=== PATIENT | female | born 1955 | race Caucasian/White ===

== ENCOUNTER 2017-03-30 07:32 | Emergency (ER) | payer SELFPAY ==
--- NOTE | 2017-03-30 07:41 | EDPHY ---
H & P Time Seen by Provider: 03/30/17 07:35 HPI/ROS: CHIEF COMPLAINT: Right leg injury HISTORY OF PRESENT ILLNESS: Patient is visiting from [place] and tripped going down the stairs at her family's house this morning. She injured her right lower leg. Pain is mild now, severe with movement or palpation. Unable to walk. Not associated with other injuries. No neck or back pain and no loss of consciousness. Pain started just after the fall. Ate dinner at 6:00 p.m., no oral intake after 7:00 p.m.. REVIEW OF SYSTEMS: Eye: No visual symptoms ENT: No ENT symptoms Cardiac: No chest pain, did not have syncope Pulmonary: Not short of breath Abdomen: No abdominal pain Musculoskeletal: no back pain or neck pain Skin: no rash Neuro: No weakness or numbness over the right foot area Constitutional: no fever : no urinary symptoms A comprehensive 10 point review of systems is otherwise negative aside from elements mentioned in the history of present illness. PAST MEDICAL HISTORY: Hypertension and thyroid Social history: Visiting from [facility]. General Appearance: Alert and conversant, cooperative. Eyes: No scleral icterus. ENT, Mouth: Normal mucous membranes. Respiratory: Normal respiratory effort, breath sounds equal, lungs are clear to auscultation. Cardiovascular: Regular rate and rhythm. Gastrointestinal: Abdomen is soft and non tender. Neurological: Alert and oriented x3. Normally conversant. Has normal dorsalis pedis pulse, motor and sensory in the right foot. Skin: Warm and dry, no rashes. No laceration over the right leg. Musculoskeletal: No spinal tenderness. Deformity and swelling in the distal right tib-fib region. Foot is nontender. Knee is nontender. Compartments soft in the right lower leg. No foot tenderness. No knee tenderness. No other extremity tenderness or deformity. Psychiatric: Not agitated. Emergency Department course/MDM: Receive fentanyl prior to arrival. NPO since last night. Plan for right tib- fib x-ray, orthopedic consultation. 800: Distal 3rd tib-fib fracture closed, x-ray personally interpreted by myself and reviewed with the patient on the computer system. Procedure: Splint placement. A right posterior Ortho Glass long leg splint was applied. After application of the splint I returned and re-examined the patient. The splint was adequately immobilizing the joint and distal to the splint the patient's circulation and sensation was intact. 835: Patient would prefer to be splinted and have crutches and follow-up in [place], she is returning this Tuesday. I warned her that open reduction internal fixation is often a standard treatment for this, however she would prefer to avoid surgery today. We discussed compartment syndrome precautions and DVT precautions in detail. She will take 1 oral aspirin each day as recommended by orthopedic consult Dr. Saucedo, with whom the case was discussed. Constitutional: Initial Vital Signs Temperature (C) 36.7 C 03/30/17 07:42 Heart Rate 70 03/30/17 07:42 Respiratory Rate 18 03/30/17 07:42 Blood Pressure 114/79 03/30/17 07:42 O2 Sat (%) 99 03/30/17 07:42 O2 Delivery Mode Room Air Allergies/Adverse Reactions: No Known Allergies Allergy (Unverified 03/30/17 07:41) Home Medications: Medication Instructions Recorded Levothyroxine 03/30/17 Metoprolol Tartrate 03/30/17 oxyCODONE/APAP 5/325 [Percocet] 1 tab PO Q4-6PRN PRN #11 tab 03/30/17 oxyCODONE/APAP 5/325 [Percocet] 1 tab PO Q4-6PRN PRN #11 tab 03/30/17 Medical Decision Making - Diagnostics Imaging Results: Imaging Impressions Tibia/Fibula X-Ray 03/30/17 07:39 Impression: Acute displaced and angulated distal tibia and fibular diaphyseal fractures. Differential Diagnosis: Differential considered including but not limited to tibia fracture, ankle dislocation, contusion, hematoma, compartment syndrome - Data Points Medications Given: Discontinued Medications Hydromorphone HCl (Dilaudid) 0.5 mg IVP EDNOW ONE Stop: 03/30/17 08:06 Last Admin: 03/30/17 08:09 Dose: 0.5 mg Departure - Departure Disposition: Home, Routine, Self-Care Clinical Impression: Tibia/fibula fracture Qualifiers: Encounter type: initial encounter Fracture type: closed Laterality: right Qualified Code(s): S82.201A - Unspecified fracture of shaft of right tibia, initial encounter for closed fracture Condition: Good Instructions: Oxycodone/Acetaminophen (By mouth), Crutch Instructions (ED) Additional Instructions: Please call back home today to arrange orthopedic follow-up on Tuesday back in [place]. Nonweightbearing on the right leg. Return immediately for weakness or numbness in the right foot, or severe right foot pain, or if the right foot becomes cold in temperature. Take one oral aspirin per day until seen by orthopedics next week and advised further. Seek immediate medical care for any chest pain or shortness of breath. Referrals: Jose Eduardo Saucedo MD [Medical Doctor] - As per Instructions Prescriptions: oxyCODONE/APAP 5/325 [Percocet] 1 tab PO Q4-6PRN PRN #11 tab PRN Reason: Pain oxyCODONE/APAP 5/325 [Percocet] 1 tab PO Q4-6PRN PRN #11 tab PRN Reason: Pain
[2017-03-30 07:44] VITALS: RESP 18; TEMP 98.1
[2017-03-30] MEDS ORDERED: HYDROmorphONE/DILAUDID 1 MG/ML INJ IVP ONE (08:05)
[2017-03-30 08:59] VITALS: BP 119/64; PULSE 72; O2SAT 95
== END 2017-03-30 08:58 | disposition home or self-care (01) ==
DX: S82.831A Other fracture of upper and lower end of right fibula, initial encounter for closed fracture (principal); S82.301A Unspecified fracture of lower end of right tibia, initial encounter for closed fracture; I10 Essential (primary) hypertension; W01.0XXA Fall on same level from slipping, tripping and stumbling without subsequent striking against object, initial encounter; Y92.009 Unspecified place in unspecified non-institutional (private) residence as the place of occurrence of the external cause
CPT/HCPCS: 96374; J1170